=== PATIENT | female | born 1945 | race Caucasian/White ===

== ENCOUNTER 2020-03-08 09:06 | Outpatient (REF) | payer MEDICARE, SELFPAY ==
[2020-03-08 11:44] LABS: Alanine Aminotransferase 18 U/L (0-31); Albumin Level 4.4 g/dL (3.5-5.0); Alkaline Phosphatase 70 U/L (39-117); Anion Gap 14 (12-20); Aspartate Amino Transferase 22 U/L (5-31); Bilirubin Total 0.6 mg/dL (0.0-1.0); Blood Urea Nitrogen 28 mg/dL (9-16); Calcium 8.6 mg/dL (8.4-10.2); Carbon Dioxide 28 mmol/L (22-29); Chloride 104 mmol/L (96-108); Cholesterol 254 mg/dL; Estimated Glomerular Filt Rate > 60; Glucose Fasting 86 mg/dL (60-99); HDL Cholesterol 53 mg/dL; LDL Cholesterol Calculated 180 mg/dl; Sodium 142 mmol/L (135-145); Triglycerides 108 mg/dL
== END 2020-03-08 09:07 | disposition home or self-care (01) ==
LOC: HO.HMGCLDS 09:06
PROVIDERS: PCP Internal Medicine; Visit Provider Internal Medicine
DX: E78.5 Hyperlipidemia, unspecified (principal); I10 Essential (primary) hypertension; M85.80 Other specified disorders of bone density and structure, unspecified site; Z78.0 Asymptomatic menopausal state
CPT/HCPCS: 80053; 80061; 82306

== ENCOUNTER 2020-09-21 10:17 | Outpatient (REF) | payer MEDICARE, SELFPAY ==
[2020-09-21 12:16] LABS: Alanine Aminotransferase 20 U/L (0-31); Anion Gap 12 (12-20); Aspartate Amino Transferase 22 U/L (5-31); Blood Urea Nitrogen 28 mg/dL (9-16); Calcium 9.1 mg/dL (8.4-10.2); Carbon Dioxide 25 mmol/L (22-29); Chloride 108 mmol/L (96-108); Cholesterol 241 mg/dL; Estimated Glomerular Filt Rate > 60; Glucose Fasting 81 mg/dL (60-99); HDL Cholesterol 56 mg/dL; LDL Cholesterol Calculated 165 mg/dl; Potassium 3.8 mmol/L (3.3-5.1); Sodium 141 mmol/L (135-145); Triglycerides 102 mg/dL
[2020-09-21 12:20] LABS: TSH reflex Free T4 2.14 uIU/mL (0.32-4.0); Vitamin D 25-OH Total 14.7 ng/mL (>30)
== END 2020-09-21 10:18 | disposition home or self-care (01) ==
LOC: HO.HMGCLDS 10:17
PROVIDERS: PCP Internal Medicine; Visit Provider Internal Medicine
DX: E55.9 Vitamin D deficiency, unspecified (principal); E78.5 Hyperlipidemia, unspecified; I10 Essential (primary) hypertension; Z78.0 Asymptomatic menopausal state
CPT/HCPCS: 36415; 80048; 80061; 82306; 84443; 84450; 84460

== ENCOUNTER 2021-11-02 09:36 | Outpatient (REF) | payer MEDICARE, SELFPAY ==
[2021-11-02 12:05] LABS: Alanine Aminotransferase 17 U/L (0-31); Anion Gap 13 (12-20); Aspartate Amino Transferase 25 U/L (5-31); Blood Urea Nitrogen 24 mg/dL (9-16); Calcium 9.6 mg/dL (8.4-10.2); Carbon Dioxide 25 mmol/L (22-29); Chloride 107 mmol/L (96-108); Cholesterol 269 mg/dL; Estimated Glomerular Filt Rate > 60; Glucose Fasting 97 mg/dL (60-99); HDL Cholesterol 56 mg/dL; LDL Cholesterol Calculated 192 mg/dl; Sodium 141 mmol/L (135-145); Triglycerides 107 mg/dL
[2021-11-02 12:09] LABS: Vitamin D 25-OH Total 22.5 ng/mL (>30)
== END 2021-11-02 09:37 | disposition home or self-care (01) ==
LOC: HO.HMGCLDS 09:36
PROVIDERS: Visit Provider Internal Medicine
DX: E55.9 Vitamin D deficiency, unspecified (principal); E78.5 Hyperlipidemia, unspecified; I10 Essential (primary) hypertension; Z78.0 Asymptomatic menopausal state
CPT/HCPCS: 36415; 80048; 80061; 82306; 84450; 84460

== ENCOUNTER 2022-07-11 13:20 | Outpatient (AMB) | payer MEDICARE, SELFPAY ==
--- NOTE | 2022-07-11 13:22 | MHC.PC.OV ---
Vital Signs 07/11/22 13:24 Height 4 ft 11 in Weight 156 lb BMI 31.5 BP 130/64 Blood Pressure Location Lt brachial Position Sitting Pulse 70 Pulse Source Pulse Oximeter Pulse Oximetry (%) 98 Oxygen Delivery Method Room Air Intake Visit Reasons: Medication F/U Intake Note: Pt is here today for a f/u HTN Allergies latex Allergy (Unknown, Verified 07/14/23 13:02) rash atorvastatin Adverse Reaction (Unknown, Verified 07/14/23 13:02) muscle cramp lisinopril Adverse Reaction (Unknown, Verified 07/14/23 13:02) cough pravastatin Adverse Reaction (Unknown, Verified 07/14/23 13:02) muscle pain rosuvastatin [Crestor] Adverse Reaction (Unknown, Verified 07/14/23 13:02) muscle cramp Medication List - Last Reconciled 07/11/22 by Joselin Rivera MD amlodipine 5 mg PO DAILY hydrochlorothiazide 12.5 mg PO QAM losartan 50 mg PO DAILY mometasone 0.1% 1 appl topical DAILY PRN Tobacco use date assessed: 07/11/22 Fall risk assessment: No Falls in past year Last assessed Fall Risk: 07/11/22 HPI Medication F/U HPI Details 76-year old lady with hypertension, hyperlipidemia, with statin intolerance, here today for her follow-up. She has been compliant with taking her medications, just got back from [place] where she spent the winter with her family and has been exercising daily. Patient however states that she has not been eating very well, eats a lot of junk food intake out over the last several months. Is overdue for screening mammogram, colonoscopy and vaccines but does not want to get any of them. [facility] Medical History Statin intolerance History of COVID-19 History of glaucoma Mammogram declined Immunization refused Eczema Vitamin D deficiency Menopause Dyslipidemia Essential hypertension Surgical History History of laparoscopic cholecystectomy Family History Father Alcoholic Diabetes mellitus Mother HTN (hypertension) Sister Lung cancer Brother No problems noted. Social History Housing: House Alcohol intake: never Patient Tobacco Use Status: Never used Tobacco e-Cigarette/Vaping Use: Never Used service: No Current occupational status: retired Cognitive needs: No Hearing needs: No Vision needs: Yes Questionnaire PHQ-9 Over the last 2 weeks, how often have you been bothered by any of the following problems? 1. Little interest or pleasure in doing things: not at all 2. Feeling down, depressed, or hopeless: not at all 3. Trouble falling or staying asleep, or sleeping too much: not at all 4. Feeling tired or having little energy: not at all 5. Poor appetite or overeating: not at all 6. Feeling bad about yourself - or that you are a failure or have let yourself or your family down: not at all 7. Trouble concentrating on things, such as reading the newspaper or watching television: not at all 8. Moving or speaking so slowly that other people could have noticed. Or the opposite - being so fidgety or restless that you have been moving around a lot more than usual: not at all 9. Thoughts that you would be better off or of hurting yourself in some way: not at all Total score: 0 Depression Screening Interpretation: Negative 23477 - PHQ-9 Billing: Yes Source: Developed by Drs. Virgilio Leon, Mechelle Mccormack, Marcelino Bishop and colleagues, with an educational roseanne from [employer]. Thrive Questionnaire Date Thrive assessed: 11/02/21 AUDIT C Alcohol Use Questionnaire (AUDIT-C) 1. How often do you have a drink containing alcohol?: Never Total Score: 0 YOVANY-7 AMB Questionnaire YOVANY-7 Date YOVANY - 7 assessed: 07/11/22 Feeling nervous, anxious, or on edge: 0 = Not at all Not being able to stop or control worryin = Not at all Worrying too much about different things: 0 = Not at all Trouble relaxin = Not at all Being so restless that it is hard to sit still: 0 = Not at all Becoming easily annoyed or irritable: 0 = Not at all Feeling afraid as if something awful might happen: 0 = Not at all Total YOVANY-7 score (0-4 normal; 5-9 mild; 10-14 moderate; 15-21 severe): 0 Source: Developed by Drs. Virgilio Leon, Mechelle Mccormack, Marcelino Bishop and colleagues, with an educational roseanne from [employer]. YOVANY-7 Assessment Billing YOVANY-7 Assessment Tool: YOVANY-7 Assessment 23145 Review of Systems Const Denies body aches, Denies chills, Denies fatigue and Denies headache(s) Eyes Denies change in vision and Reports requires corrective lenses ENT Denies dizziness, Denies headache(s), Denies nasal congestion and Denies sore throat Card Denies chest pain and Denies dyspnea Resp Denies cough and Denies dyspnea GI Denies abdominal pain Reports no additional complaints Musc Denies myalgias Neuro Denies dizziness, Denies headache(s) and Denies focal weakness Psych Reports no additional complaints Endo Denies fatigue Marito/Lymph Reports no additional complaints Aller/Immun Reports no additional complaints Physical exam (Primary Care) Vital Signs: Last Vital Signs Pulse 70 07/11/22 13:24 BP 130/64 07/11/22 13:24 Pulse Ox 98 07/11/22 13:24 Oxygen Delivery Method Room Air 07/11/22 13:24 BMI result Body Mass Index 31.5 Tobacco/Smoking Status: Tobacco use Status Tobacco use date assessed 07/11/22 07/11/22 13:29 Patient Tobacco Use Status Never used Tobacco 07/11/22 13:23 e-Cigarette/Vaping Use Never Used 07/11/22 13:23 PHQ-9: PHQ-9 Score PHQ-9: Total score 0 07/16/23 03:52 Depression Screening Interpretation: Negative Thrive Assessment: Date of Thrive Assessment Date Thrive assessed 11/02/21 07/11/22 13:23 Const General: comfortable, no acute distress and alert Orientation/consciousness: patient oriented x3 Limitations: no limitations HENMT Ears: external ears normal, TM's normal bilaterally and EAC's normal General nose exam: Normal external nose present Mouth: Normal oral and palatal mucosa present, oropharynx normal and moist mucous membranes Eyes General: appearance normal, both eyes and all related structures Sclerae: sclerae normal Pupils: Equal, round and reactive pupils present EOM: EOMs intact bilaterally Neck Neck: Yes full ROM, Yes no lymphadenopathy and Yes supple Resp Effort & Inspection: normal respiratory effort and able to speak in complete sentences Auscultation: clear to auscultation bilaterally Cardio Rate: regular rate Rhythm: regular rhythm Heart sounds: S1 normal heart sound present and S2 normal heart sound present GI Palpation (GI): Soft to palpation, nontender and no masses Auscultation: normal bowel sounds Back/Spine/Pelvis Back: No back tenderness Skin General skin exam: no rashes or lesions noted Neuro General: patient oriented x3, gait normal, tone normal, moves all extremities, Normal light touch and pain sensation and no focal motor deficits Cranial nerves: Yes CN's II-XII intact bilaterally and Yes Equal, round and reactive pupils present Cognition (Neuro): normal cognition Extrem General: Yes full ROM, Yes no joint enlargement, Yes no clubbing, cyanosis or edema and Yes no calf tenderness Psych Appearance: grossly normal and well kempt Mental Status: mental status grossly normal Speech and movement: Normal speech and movement present Affect: normal affect Attitude: cooperative Assessment and Plan Assessment & Plan (1) Statin intolerance: Code(s): Z78.9 - Other specified health status (2) COVID-19 vaccination refused: Code(s): Z28.21 - Immunization not carried out because of patient refusal (3) Essential hypertension: Code(s): I10 - Essential (primary) hypertension Plan: Continue amlodipine, hydrochlorothiazide and losartan, reinforced importance of following a low-salt diet and get regular exercise for at least 30 minutes and a daily basis. (4) Dyslipidemia: Code(s): E78.5 - Hyperlipidemia, unspecified Plan: Patient with elevated LDL cholesterol and triglycerides, refusing to take any statin due to severe muscle pains when taking , has tried several . Stressed importance of following ao low-cholesterol diet and regular exercise, at least 30 minutes 3 to 4 times a week. Advised patient to make healthy food choices, eat more fruits, vegetables, whole grains, wild caught fish and low-fat dairy. Limit amount of meat and fried or fatty food products, as well as processed foods and fast foods. fasting lipid panel ordered (5) Vitamin D deficiency: Code(s): E55.9 - Vitamin D deficiency, unspecified Plan: Start taking [id number] vitamin-D 3 at least 2000 units once a day, will check vitamin-D level Orders: Orders Basic Metabolic Panel Fasting 07/11/22 Z78.9 - Other specified health status, Z28.21 - Immunization not carried out because of patient refusal, I10 - Essential (primary) hypertension, E78.5 - Hyperlipidemia, unspecified, E55.9 - Vitamin D deficiency, unspecified, Z78.0 - Asymptomatic menopausal state AMB Hemoglobin A1c 07/11/22 Z78.9 - Other specified health status, Z28.21 - Immunization not carried out because of patient refusal, I10 - Essential (primary) hypertension, E78.5 - Hyperlipidemia, unspecified, E55.9 - Vitamin D deficiency, unspecified, Z78.0 - Asymptomatic menopausal state Alanine Aminotransferase 07/11/22 Z78.9 - Other specified health status, Z28.21 - Immunization not carried out because of patient refusal, I10 - Essential (primary) hypertension, E78.5 - Hyperlipidemia, unspecified, E55.9 - Vitamin D deficiency, unspecified, Z78.0 - Asymptomatic menopausal state Lipid Panel 07/11/22 Z78.9 - Other specified health status, Z28.21 - Immunization not carried out because of patient refusal, I10 - Essential (primary) hypertension, E78.5 - Hyperlipidemia, unspecified, E55.9 - Vitamin D deficiency, unspecified, Z78.0 - Asymptomatic menopausal state Vitamin D 25-OH Total 07/11/22 Z78.9 - Other specified health status, Z28.21 - Immunization not carried out because of patient refusal, I10 - Essential (primary) hypertension, E78.5 - Hyperlipidemia, unspecified, E55.9 - Vitamin D deficiency, unspecified, Z78.0 - Asymptomatic menopausal state Coding Level of Care Code Est Pt Level 4 (91484) Diagnoses Statin intolerance Z78.9 COVID-19 vaccination refused Z28.21 Essential hypertension I10 Dyslipidemia E78.5 Vitamin D deficiency E55.9 Additional Codes YOVANY-7 Assessment Billing - YOVANY-7 Assessment Tool: YOVANY-7 Assessment 67244 ([id number])
[2022-07-11 13:24] VITALS: BP 130/64; PULSE 70; O2SAT 98; BMI 31.5
== END 2022-07-11 14:13 | disposition home or self-care (01) ==
LOC: HO.HMGC 13:20
PROVIDERS: PCP Internal Medicine; Visit Provider Internal Medicine
DX: Z78.9 Other specified health status (principal); Z28.21 Immunization not carried out because of patient refusal; I10 Essential (primary) hypertension; E78.5 Hyperlipidemia, unspecified; E55.9 Vitamin D deficiency, unspecified
CPT/HCPCS: 99499

== ENCOUNTER 2022-11-16 13:06 | Outpatient (AMB) | payer MEDICARE, SELFPAY ==
--- NOTE | 2022-11-16 13:11 | MHC.OFFWIV ---
Intake Vital Signs 11/16/22 13:14 Height 4 ft 11 in BP 158/90 H Blood Pressure Location Lt brachial Position Sitting Pulse 72 Pulse Source Pulse Oximeter Temp 98.3 F Temp Source Oral Pulse Oximetry (%) 98 Oxygen Delivery Method Room Air Intake Visit Reasons: EP Upper respiratory/voice Intake Note: pt is here for upper respiratory issues and voice is raspy Patient Tobacco Use Status: Never used Tobacco Allergies latex Allergy (Unknown, Verified 11/16/22 13:30) rash atorvastatin Adverse Reaction (Unknown, Verified 11/16/22 13:30) muscle cramp lisinopril Adverse Reaction (Unknown, Verified 11/16/22 13:30) cough pravastatin Adverse Reaction (Unknown, Verified 11/16/22 13:30) muscle pain rosuvastatin [Crestor] Adverse Reaction (Unknown, Verified 11/16/22 13:30) muscle cramp Medication List - Last Reconciled 11/16/22 by Jesus Scott PA-C amlodipine 5 mg PO DAILY hydrochlorothiazide 12.5 mg PO QAM losartan 50 mg PO DAILY mometasone 0.1% 1 appl topical DAILY PRN Do you need a note to return to daycare/school/sports/work: No HPI EP Upper respiratory/voice HPI Details Patient is 77-year-old female here today for upper respiratory cough and hoarseness of voice over the last 4 days. She denies any sick contacts. Has been using allergy medication though does not feel is helpful. She reports her cough is sometimes productive of green sputum. Otherwise denies any fever chills, shortness of breath, chest pain or dizziness. [facility] Medical History Dyslipidemia Eczema Essential hypertension History of COVID-19 History of glaucoma Immunization refused Mammogram declined Menopause Statin intolerance Vitamin D deficiency Surgical History History of laparoscopic cholecystectomy Family History Father Alcoholic Diabetes mellitus Mother HTN (hypertension) Sister Lung cancer Brother No problems noted. Social History Housing: House Alcohol intake: never Patient Tobacco Use Status: Never used Tobacco e-Cigarette/Vaping Use: Never Used Current occupational status: retired Cognitive needs: No Hearing needs: No Vision needs: Yes Review of Systems Const Denies headache(s) Eyes Denies loss of vision ENT Denies vertigo, Denies dizziness, Denies headache(s) and Denies sore throat Card Denies chest pain, Denies leg edema and Denies lightheadedness Resp Denies cough, Denies hemoptysis and Denies wheezing GI Denies abdominal pain, Denies melena, Denies constipation, Denies diarrhea and Denies vomiting Denies urinary frequency, Denies dysuria and Denies urinary urgency Musc Denies arthralgias, Denies joint swelling, Denies numbness and Denies tingling Neuro Denies Abnormal speech present, Denies behavioral changes, Denies vertigo, Denies dizziness, Denies headache(s), Denies loss of vision, Denies memory loss, Denies numbness and Denies tingling Psych Denies anxiety, Denies behavioral changes, Denies depression, Denies memory loss and Denies panic attacks Marito/Lymph Denies easy bleeding and Denies easy bruising Aller/Immun Denies wheezing Physical Exam Vital Signs: Last Vital Signs Temp 98.3 F 11/16/22 13:14 Pulse 72 11/16/22 13:14 BP 158/90 H 11/16/22 13:14 Pulse Ox 98 11/16/22 13:14 Oxygen Delivery Method Room Air 11/16/22 13:14 Const General: healthy appearing, no acute distress, alert and awake Nutritional Appearance: well nourished Orientation/consciousness: oriented to person, oriented to place and oriented to time HEENT Ears: TM's normal bilaterally General nose exam: Normal nasal mucous membranes and turbinates present Eyes Conjunctivae: conjunctivae normal Sclerae: sclerae normal Pupils: Equal, round and reactive pupils present Neck Neck: Yes no lymphadenopathy and Yes no JVD Thyroid: Thyroid normal Carotids: no bruits Resp Other: Occasional dry cough during exam Effort & Inspection: normal respiratory effort and not tachypneic Auscultation: no crackles, no rales, no rhonchi and no wheezes Cardio Rate: regular rate Rhythm: regular rhythm Heart sounds: no murmurs and normal S1 and S2 GI Palpation (GI): Soft to palpation, nontender, no hepatomegaly and no splenomegaly Auscultation: normal bowel sounds Skin General skin exam: no rashes or lesions noted and dry skin Neuro General: oriented to person, oriented to place and oriented to time Cranial nerves: Yes Equal, round and reactive pupils present Speech: No Abnormal speech present Gait exam (Neuro): Normal gait present Motor exam (neuro): no tremor noted Extrem Right upper extremity: full ROM Left upper extremity: full ROM Right lower extremity: full ROM; no edema Left lower extremity: full ROM; no edema Psych Mental Status: mental status grossly normal Speech and movement: Normal speech and movement present Affect: normal affect Attitude: cooperative Thought process: Normal thought process present Assessment & Plan Assessment & Plan (1) Bronchitis: Code(s): J40 - Bronchitis, not specified as acute or chronic Plan: Patient's signs symptoms most consistent with a simple bronchitis. Pulmonary exam without any wheezing, crackle or rales. Advised to continue with allergy medication. Offered albuterol inhaler for bronchospasm though patient declines. This time do not feel the need to start antibiotics. If symptoms worsen please call back. Coding Level of Care Code Est Pt Level 3 (68420) Diagnoses Bronchitis J40
[2022-11-16 13:14] VITALS: BP 158/90; PULSE 72; TEMP 36.8; O2SAT 98
== END 2022-11-16 14:13 | disposition home or self-care (01) ==
PROVIDERS: PCP Internal Medicine; Visit Provider Physician Assistant
DX: J40 Bronchitis, not specified as acute or chronic (principal)
CPT/HCPCS: 99213

== ENCOUNTER 2023-06-04 13:17 | Outpatient (AMB) | payer MEDICARE, SELFPAY ==
[2023-06-04 13:26] VITALS: BP 170/80; PULSE 77; TEMP 36.6; O2SAT 98; BMI 32.3
--- NOTE | 2023-06-04 13:26 | MHC.OFFWIV ---
Intake Vital Signs 06/04/23 13:26 Height 4 ft 11 in Weight 160 lb BMI 32.3 BP 170/80 H Blood Pressure Location Lt brachial Position Sitting Pulse 77 Pulse Source Pulse Oximeter Temp 97.9 F Temp Source Temporal Artery Scan Pulse Oximetry (%) 98 Oxygen Delivery Method Room Air Intake Visit Reasons: EP swollen rt eye BP check Intake Note: pt is here today for swollen rt eye started 1 week ago Patient Tobacco Use Status: Never used Tobacco Allergies latex Allergy (Unknown, Verified 06/04/23 13:31) rash atorvastatin Adverse Reaction (Unknown, Verified 06/04/23 13:31) muscle cramp lisinopril Adverse Reaction (Unknown, Verified 06/04/23 13:31) cough pravastatin Adverse Reaction (Unknown, Verified 06/04/23 13:31) muscle pain rosuvastatin [Crestor] Adverse Reaction (Unknown, Verified 06/04/23 13:31) muscle cramp Do you need a note to return to daycare/school/sports/work: No HPI HPI Comments History of Present Illness Details She presents to office with 2 complaints Swolen R eyelid upper Ongoing x 1 week Used hot packs without relief; only temporary +glasses No contacts No trauma or injury Pain level is irritating; 0/10 She denies drainage from area No similar L eye symptoms She said second concern is BP Pt unsure if it was her cuff of her BP readings She has been 167/67 at home, this has been ongoing for a few weeks to months Went to [place] to visit daughter and Bps ranges from 130s to 150s systolic She was taking HTCH 12.5mg daily and increased this medicine to 25mg total daily on her own to just about [address] Mauro for PCP No CP or SOB. Denies headaches or dizziness No leg swelling or calf pain; had some swelling while in [place] but it got better when she returned on Friday She has been checking her BPs every other days Her BPs are typically still 160s systolic. She takes it usually late morning. [facility] Medical History Dyslipidemia Eczema Essential hypertension History of COVID-19 History of glaucoma Immunization refused Mammogram declined Menopause Statin intolerance Vitamin D deficiency Surgical History History of laparoscopic cholecystectomy Family History Father Alcoholic Diabetes mellitus Mother HTN (hypertension) Sister Lung cancer Brother No problems noted. Social History Housing: House Alcohol intake: never Patient Tobacco Use Status: Never used Tobacco e-Cigarette/Vaping Use: Never Used Current occupational status: retired Cognitive needs: No Hearing needs: No Vision needs: Yes Review of Systems Const Denies body aches, Denies chills, Denies fatigue, Denies fever(s) and Denies headache(s) Eyes Denies blurry vision, Reports irritation, Reports itchy eyes, Denies loss of vision and Denies spots in vision ENT Denies dizziness, Denies otalgia, Denies headache(s), Denies nasal congestion and Denies sore throat Card Denies chest pain, Denies syncope and Denies dyspnea Resp Denies cough and Denies dyspnea GI Denies abdominal pain Musc Denies myalgias Neuro Denies dizziness, Denies syncope, Denies headache(s), Denies focal weakness and Denies loss of vision Endo Denies fatigue Aller/Immun Reports itchy eyes Physical Exam Vital Signs: Last Vital Signs Temp 97.9 F 06/04/23 13:26 Pulse 77 06/04/23 13:26 BP 170/80 H 06/04/23 13:26 Pulse Ox 98 06/04/23 13:26 Oxygen Delivery Method Room Air 06/04/23 13:26 BMI result Body Mass Index 32.3 General: Non-toxic, NAD. Speaking full sentences. Skin: Warm dry throughout Eye: EOMI, pERRL. No conjunctival erythema. No discharge. + erythema and edema to middle of R upper eyelid near follicles. + tenderness to palpation Respiratory: CTA bilaterally. No wheezes, rales or rhonchi Cardiac: RRR. No murmur MSK: Sitting upright on chair. Gait stable. Neurology: A/O. No aphasia or facial droop. Psych: Good mood and affect Assessment & Plan Assessment & Plan (1) Hypertension: Code(s): I10 - Essential (primary) hypertension Qualifiers: Hypertension type: unspecified Qualified Code(s): I10 - Essential (primary) hypertension Plan: Patient seen and evaluated. Repeat manual BP was 138/68 L arm by my reading. I spoke with pts PCP and she is okay with her continuing the 25mg of HTCZ Pt will go to front upon d/c and make appointment with PCP Discussed new BP monitor Discussed s/s and readings that warrant ED evaluation and management like CP, SOB, dizziness, headaches vision changes etc Patient gave verbal understanding and had no additional questions or concerns at time of discharge All questions answered (2) Blepharitis: Code(s): H01.009 - Unspecified blepharitis unspecified eye, unspecified eyelid Qualifiers: Blepharitis type: unspecified type Laterality: right Eyelid: upper Qualified Code(s): H01.001 - Unspecified blepharitis right upper eyelid Plan: Warm compress antibiotic drops Follow up with PCP Medications: New ofloxacin 0.3% 1 drp ophthalmic (eye) QID 7 days 10 mL 0RF Refilled mometasone 0.1% 1 appl topical DAILY PRN 45 grams 0RF rash Coding Level of Care Code Est Pt Level 3 (91861) Diagnoses Hypertension, unspecified type I10 Hypertension type: unspecified Blepharitis of right upper eyelid, unspecified type H01.001 Blepharitis type: unspecified type Laterality: right Eyelid: upper
== END 2023-06-04 15:24 | disposition home or self-care (01) ==
PROVIDERS: PCP Internal Medicine; Visit Provider Physician Assistant
DX: I10 Essential (primary) hypertension (principal); H01.001 Unspecified blepharitis right upper eyelid
CPT/HCPCS: 99213

== ENCOUNTER 2023-07-11 07:21 | Outpatient (REF) | payer MEDICARE, SELFPAY ==
[2023-07-11 11:46] LABS: Estimated Average Glucose 105 mg/dL; Hemoglobin A1c % 5.3 % (<6.0)
[2023-07-11 11:52] LABS: Alanine Aminotransferase 13 U/L (0-31); Anion Gap 12 (12-20); Aspartate Amino Transferase 22 U/L (5-31); Blood Urea Nitrogen 22 mg/dL (9-16); Calcium 9.3 mg/dL (8.4-10.2); Carbon Dioxide 26 mmol/L (22-29); Chloride 107 mmol/L (96-108); Cholesterol 234 mg/dL (<200); Estimated Glomerular Filt Rate > 60; Glucose Fasting 94 mg/dL (60-99); HDL Cholesterol 49 mg/dL (>40); LDL Cholesterol Calculated 163 mg/dL (<100); Potassium 3.5 mmol/L (3.3-5.1); Sodium 141 mmol/L (135-145); Triglycerides 113 mg/dL (<150)
[2023-07-11 12:10] LABS: Vitamin D 25-OH Total 21.3 ng/mL (>30)
== END 2023-07-11 07:22 | disposition home or self-care (01) ==
LOC: HO.HMGCLDS 07:21
PROVIDERS: PCP Internal Medicine; Visit Provider Internal Medicine
DX: I10 Essential (primary) hypertension (principal); E78.5 Hyperlipidemia, unspecified; Z78.0 Asymptomatic menopausal state; E55.9 Vitamin D deficiency, unspecified; Z78.9 Other specified health status
CPT/HCPCS: 36415; 80048; 80061; 82306; 83036; 84450; 84460

== ENCOUNTER 2023-07-14 11:24 | Outpatient (AMB) | payer MEDICARE, SELFPAY ==
--- NOTE | 2023-07-14 12:11 | MHC.PC.OV ---
Vital Signs 07/14/23 12:22 Height 4 ft 11 in Weight 161 lb 2 oz BMI 32.5 BP 130/62 Blood Pressure Location Lt brachial Position Sitting Pulse 72 Pulse Source Pulse Oximeter Pulse Oximetry (%) 98 Oxygen Delivery Method Room Air Intake Visit Reasons: 1 year follow up Intake Note: Pt is here today for 1 Year follow Up. Allergies latex Allergy (Unknown, Verified 07/14/23 13:02) rash atorvastatin Adverse Reaction (Unknown, Verified 07/14/23 13:02) muscle cramp lisinopril Adverse Reaction (Unknown, Verified 07/14/23 13:02) cough pravastatin Adverse Reaction (Unknown, Verified 07/14/23 13:02) muscle pain rosuvastatin [Crestor] Adverse Reaction (Unknown, Verified 07/14/23 13:02) muscle cramp Medication List - Last Reconciled 07/14/23 by Joselin Rivera MD amlodipine 5 mg PO DAILY cholecalciferol (vitamin D3) 1,250 mcg PO QWEEK 3 months hydrochlorothiazide 25 mg PO QAM losartan 50 mg PO DAILY mometasone 0.1% 1 appl topical DAILY PRN Tobacco use date assessed: 07/14/23 Fall risk assessment: No Falls in past year Last assessed Fall Risk: 07/14/23 Dental Screening Dental Screen Date: 07/14/23 Did you have a dental visit in the last 12 months?: No Did you have a dental problem in the last 6 months where you did not have access to dental care?: No Was dental information given to patient?: Patient has dentist HPI 1 year follow up HPI Details 77-year-old lady, with hypertension, mixed dyslipidemia, history of vitamin-D deficiency, here today for her follow-up. She just came back from [place], where she states it was raining all day and no sun. Recent fasting labs done showed normal fasting glucose, electrolytes are within normal limits, vitamin-D however still remains low at 21, lipids showed improvement as compared to last check with the and LDL cholesterol now at 163 with normal triglycerides she is intolerant of statins, but has changed her diet and has been exercising regularly while she was in [place]. She does not want to get any vaccinations, does not want to get mammogram, bone density scan or colonoscopy. She did increase her hydrochlorothiazide dose to 25 mg daily in addition to her lisinopril and amlodipine while she was taking [place] as her blood pressure there has been running around 170/90. Patient states that her blood pressure has now been running at goal of less than 130/90. Denies any chest pain, no headache, no lightheadedness, gets an occasional skipped beat, but no shortness of breath reported [facility] Medical History Statin intolerance History of COVID-19 History of glaucoma Mammogram declined Immunization refused Eczema Vitamin D deficiency Menopause Dyslipidemia Essential hypertension Surgical History History of laparoscopic cholecystectomy Family History Father Alcoholic Diabetes mellitus Mother HTN (hypertension) Sister Lung cancer Brother No problems noted. Social History Housing: House Alcohol intake: never Patient Tobacco Use Status: Never used Tobacco e-Cigarette/Vaping Use: Never Used service: No Current occupational status: retired Cognitive needs: No Hearing needs: No Vision needs: Yes Questionnaire PHQ-9 Over the last 2 weeks, how often have you been bothered by any of the following problems? 1. Little interest or pleasure in doing things: not at all 2. Feeling down, depressed, or hopeless: not at all 3. Trouble falling or staying asleep, or sleeping too much: not at all 4. Feeling tired or having little energy: not at all 5. Poor appetite or overeating: not at all 6. Feeling bad about yourself - or that you are a failure or have let yourself or your family down: not at all 7. Trouble concentrating on things, such as reading the newspaper or watching television: not at all 8. Moving or speaking so slowly that other people could have noticed. Or the opposite - being so fidgety or restless that you have been moving around a lot more than usual: not at all 9. Thoughts that you would be better off or of hurting yourself in some way: not at all Total score: 0 Depression Screening Interpretation: Negative Depression Screening Done: Yes 37828 - PHQ-9 Billing: Yes Source: Developed by Drs. Virgilio Leon, Mechelle Mccormack, Marcelino Bishop and colleagues, with an educational roseanne from [employer]. Thrive Questionnaire Date Thrive assessed: 07/14/23 I am a: Patient What is your living situation today?: I have a steady place to live Within the past 12 months, did the food you bought not last and you didn't have the money to get more?: Never true Within the past 12 months, did you worry whether your food would run out before you got money to buy more?: Never true Do you have trouble paying for medicines?: No Do you have trouble getting transportation to medical appointments?: No Do you have trouble paying your heating and electricity bill?: No Do you have trouble taking care of your child, family member or friend?: No Do you have trouble with day-to-day activities such as bathing, preparing meals, shopping, managing finances, etc.?: No Are you currently unemployed and looking for a job?: No Are you interested in more education?: No Please select the resources that you would like help with: None Currently or been in a relationship where the following occur: no concerns reported THRIVE Score: 0 YOVANY-7 AMB Questionnaire YOVANY-7 Date YOVANY - 7 assessed: 07/14/23 Feeling nervous, anxious, or on edge: 0 = Not at all Not being able to stop or control worryin = Not at all Worrying too much about different things: 0 = Not at all Trouble relaxin = Not at all Being so restless that it is hard to sit still: 0 = Not at all Becoming easily annoyed or irritable: 0 = Not at all Feeling afraid as if something awful might happen: 0 = Not at all Total YOVANY-7 score (0-4 normal; 5-9 mild; 10-14 moderate; 15-21 severe): 0 Source: Developed by Drs. Virgilio Leon, Mechelle Mccormack, Marcelino Bishop and colleagues, with an educational roseanne from [employer]. YOVANY-7 Assessment Billing YOVANY-7 Assessment Tool: YOVANY-7 Assessment 10419 Review of Systems Const Denies body aches, Denies chills, Denies fatigue, Denies fever(s) and Denies headache(s) Eyes Denies change in vision and Reports requires corrective lenses ENT Denies dizziness, Denies otalgia, Denies headache(s), Denies nasal congestion and Denies sore throat Card Denies chest pain, Denies syncope and Denies dyspnea Resp Denies cough and Denies dyspnea GI Denies abdominal pain Reports no additional complaints Musc Denies myalgias Neuro Denies dizziness, Denies syncope, Denies headache(s) and Denies focal weakness Psych Reports no additional complaints Endo Denies fatigue Marito/Lymph Reports no additional complaints Aller/Immun Reports no additional complaints Physical exam (Primary Care) Vital Signs: Last Vital Signs Pulse 72 07/14/23 12:22 BP 130/62 07/14/23 12:22 Pulse Ox 98 07/14/23 12:22 Oxygen Delivery Method Room Air 07/14/23 12:22 BMI result Body Mass Index 32.5 Tobacco/Smoking Status: Tobacco use Status Tobacco use date assessed 07/14/23 07/14/23 12:26 Patient Tobacco Use Status Never used Tobacco 07/14/23 12:13 e-Cigarette/Vaping Use Never Used 07/14/23 12:13 PHQ-9: PHQ-9 Score PHQ-9: Total score 0 07/14/23 12:13 Depression Screening Interpretation: Negative Thrive Assessment: Date of Thrive Assessment Date Thrive assessed 07/14/23 07/14/23 12:13 Currently or been in a relationship where the following occur: no concerns reported Const General: comfortable, no acute distress and alert Orientation/consciousness: patient oriented x3 Limitations: no limitations HENMT Ears: external ears normal, TM's normal bilaterally and EAC's normal General nose exam: Normal external nose present and No nasal discharge present Mouth: Normal oral and palatal mucosa present, oropharynx normal and moist mucous membranes Eyes General: appearance normal, both eyes and all related structures Sclerae: sclerae normal Pupils: Equal, round and reactive pupils present EOM: EOMs intact bilaterally Neck Neck: Yes full ROM, Yes no lymphadenopathy and Yes supple Resp Effort & Inspection: normal respiratory effort and able to speak in complete sentences Auscultation: clear to auscultation bilaterally Cardio Rate: regular rate Rhythm: regular rhythm Heart sounds: S1 normal heart sound present and S2 normal heart sound present GI Palpation (GI): Soft to palpation, nontender and no masses Auscultation: normal bowel sounds Back/Spine/Pelvis Back: No back tenderness Skin General skin exam: no rashes or lesions noted Neuro General: patient oriented x3, gait normal, tone normal, moves all extremities, Normal light touch and pain sensation and no focal motor deficits Cranial nerves: Yes CN's II-XII intact bilaterally and Yes Equal, round and reactive pupils present Cognition (Neuro): normal cognition Extrem General: Yes full ROM, Yes no joint enlargement, Yes no clubbing, cyanosis or edema and Yes no calf tenderness Psych Appearance: grossly normal and well kempt Mental Status: mental status grossly normal Speech and movement: Normal speech and movement present Affect: normal affect Attitude: cooperative Results Reviewed Results Reviewed: Name: Daphne Juan Age/Sex: 77/F : 1945 Unit#: [id number] Attend Dr: Joselin Rivera MD Re07/11/23 Status: DEP REF Location: [facility] Disch: SPEC : [id number] KIKI: 07/11/23 STATUS: COMP REQ : [id number] RECD: 07/11/[address]: Joselin Rivera MD COMP: 07/11/23 ENTERED: 07/11/[address]: ORDERED: Met Prof Fast, AST, ALT, Lipid Panel, Vitamin D 25-OH Test Result Flag Reference Sodium 141 135-145 mmol/L Potassium 3.5 3.3-5.1 mmol/L CL 107 96-108 mmol/L CO2 26 22-29 mmol/L Gap 12 12-20 BUN 22 H 9-16 mg/dL Creat 0.86 0.5-1.4 mg/dL EGFR > 60 NOTE: For -Gabonese individuals, multiply the result by 1.210. Chronic Kidney Disease: Estimated GFR < 60 mL/min/1.73m2 Severe Kidney Disease: Estimated GFR < 15 mL/min/1.73m2 FBS 94 60-99 mg/dL CA 9.3 8.4-10.2 mg/dL AST (GOT) 22 5-31 U/L ALT (GPT) 13 0-31 U/L Triglyceride 113 <150 mg/dL Desirable Triglyceride: less than 150 mg/dL Borderline High Triglyceride 150-199 mg/dL High Triglyceride: 200-499 mg/dL Very High Triglyceride: greater than or equal to 5OO mg/dL Cholesterol 234 H <200 mg/dL Desirable Cholesterol: less than 200 mg/dL Borderline High Cholesterol: 200-239 mg/dL High Cholesterol: greater than 239 mg/dL LDL Calculated 163 H <100 mg/dL Desirable LDL: less than 100 mg/dL Near Optimal/Above Optimal LDL: 110-129 mg/dL Borderline High LDL: 130-159 mg/dL High LDL: 160-189 mg/dL Very High LDL: greater than or equal to 190 mg/dL HDL 49 >40 mg/dL Desirable HDL: greater than 40 mg/dL Note: This HDL assay may give artificially low results in patients with liver disease. Vit D 25-OH Tot 21.3 L >30 ng/mL Health Based Reference Values* < 20 ng/mL Deficient 20-30 ng/mL Insufficient > 30 ng/mL Sufficient Assessment and Plan Assessment & Plan (1) Essential hypertension: Code(s): I10 - Essential (primary) hypertension Plan: Blood pressure at goal of less than 130/80. Continue with amlodipine, lisinopril at the same dose, hydrochlorothiazide dose refilled at 25 mg per tablet to take once a day in a.m... Reinforced importance of following a low sodium diet, getting regular exercise, and lowering stress levels. (2) Vitamin D deficiency: Code(s): E55.9 - Vitamin D deficiency, unspecified Plan: She was placed back on cholecalciferol 54490 units per capsule, to take once a week for the next 3 months. Advised to take [id number] vitamin D3 at 2000 units once a day after finishing prescription continue with regular exercise (3) Statin intolerance: Code(s): Z78.9 - Other specified health status Plan: She has hyperlipidemia with improvement in her lipids, does not want to start any statins as it has given her severe muscle pains in the past (4) Dyslipidemia: Code(s): E78.5 - Hyperlipidemia, unspecified Plan: Fasting lipid panel done recently showed improvement in her LDL cholesterol, now down to 163 mg/dL, goal is to go less than 130 at least. Continue with regular exercise and adherence to healthy eating habits. Will repeat another lipid panel in 1 year, patient does not want to get it done sooner Orders: Orders Aspartate Amino Transferase 07/11/23 E55.9 - Vitamin D deficiency, unspecified, E78.5 - Hyperlipidemia, unspecified, I10 - Essential (primary) hypertension, Z78.0 - Asymptomatic menopausal state, Z78.9 - Other specified health status Basic Metabolic Panel Fasting 07/11/23 E55.9 - Vitamin D deficiency, unspecified, E78.5 - Hyperlipidemia, unspecified, I10 - Essential (primary) hypertension, Z78.0 - Asymptomatic menopausal state, Z78.9 - Other specified health status Vitamin D 25-OH Total 07/11/23 E55.9 - Vitamin D deficiency, unspecified, E78.5 - Hyperlipidemia, unspecified, I10 - Essential (primary) hypertension, Z78.0 - Asymptomatic menopausal state, Z78.9 - Other specified health status Lipid Panel 07/03/24 E55.9 - Vitamin D deficiency, unspecified, E78.5 - Hyperlipidemia, unspecified, I10 - Essential (primary) hypertension, Z78.0 - Asymptomatic menopausal state, Z78.9 - Other specified health status Alanine Aminotransferase 07/03/24 E55.9 - Vitamin D deficiency, unspecified, E78.5 - Hyperlipidemia, unspecified, I10 - Essential (primary) hypertension, Z78.0 - Asymptomatic menopausal state, Z78.9 - Other specified health status Basic Metabolic Panel Fasting 07/03/24 E55.9 - Vitamin D deficiency, unspecified, E78.5 - Hyperlipidemia, unspecified, I10 - Essential (primary) hypertension, Z78.0 - Asymptomatic menopausal state, Z78.9 - Other specified health status Hemoglobin A1c 07/11/23 E55.9 - Vitamin D deficiency, unspecified, E78.5 - Hyperlipidemia, unspecified, I10 - Essential (primary) hypertension, Z78.0 - Asymptomatic menopausal state, Z78.9 - Other specified health status Alanine Aminotransferase 07/11/23 E55.9 - Vitamin D deficiency, unspecified, E78.5 - Hyperlipidemia, unspecified, I10 - Essential (primary) hypertension, Z78.0 - Asymptomatic menopausal state, Z78.9 - Other specified health status Lipid Panel 07/11/23 E55.9 - Vitamin D deficiency, unspecified, E78.5 - Hyperlipidemia, unspecified, I10 - Essential (primary) hypertension, Z78.0 - Asymptomatic menopausal state, Z78.9 - Other specified health status Aspartate Amino Transferase 07/03/24 E55.9 - Vitamin D deficiency, unspecified, E78.5 - Hyperlipidemia, unspecified, I10 - Essential (primary) hypertension, Z78.0 - Asymptomatic menopausal state, Z78.9 - Other specified health status Vitamin D 25-OH Total 07/03/24 E55.9 - Vitamin D deficiency, unspecified, E78.5 - Hyperlipidemia, unspecified, I10 - Essential (primary) hypertension, Z78.0 - Asymptomatic menopausal state, Z78.9 - Other specified health status Medications: New hydrochlorothiazide 25 mg PO QAM 90 tabs 4RF cholecalciferol (vitamin D3) 1,250 mcg PO QWEEK 3 months 13 caps 0RF E55.9 - Vitamin D deficiency, unspecified Discontinued hydrochlorothiazide Discontinued Reason: Doctor's Order 12.5 mg PO QAM 90 caps 1RF Coding Level of Care Code Est Pt Level 4 (34811) Diagnoses Essential hypertension I10 Vitamin D deficiency E55.9 Statin intolerance Z78.9 Dyslipidemia E78.5 Additional Codes YOVANY-7 Assessment Billing - YOVANY-7 Assessment Tool: YOVANY-7 Assessment 50306 ([id number])
[2023-07-14 12:22] VITALS: BP 130/62; PULSE 72; O2SAT 98; BMI 32.5
== END 2023-07-14 16:58 | disposition home or self-care (01) ==
PROVIDERS: Visit Provider Internal Medicine
DX: I10 Essential (primary) hypertension (principal); E55.9 Vitamin D deficiency, unspecified; Z78.9 Other specified health status; E78.5 Hyperlipidemia, unspecified
CPT/HCPCS: 99214

== ENCOUNTER 2024-08-09 08:19 | Outpatient (REF) | payer MEDICARE, SELFPAY ==
[2024-08-09 11:14] LABS: Alanine Aminotransferase 18 U/L (0-31); Anion Gap 12 (12-20); Aspartate Amino Transferase 32 U/L (5-31); Blood Urea Nitrogen 20 mg/dL (9-16); Calcium 9.5 mg/dL (8.4-10.2); Carbon Dioxide 25 mmol/L (22-29); Chloride 107 mmol/L (96-108); Cholesterol 247 mg/dL (<200); Estimated Glomerular Filt Rate > 60; Glucose Fasting 90 mg/dL (60-99); HDL Cholesterol 58 mg/dL (>40); LDL Cholesterol Calculated 171 mg/dL (<100); Potassium 3.3 mmol/L (3.3-5.1); Sodium 141 mmol/L (135-145); Triglycerides 93 mg/dL (<150)
== END 2024-08-09 08:20 | disposition home or self-care (01) ==
LOC: HO.HMGCLDS 08:19
PROVIDERS: PCP Internal Medicine; Visit Provider Internal Medicine
DX: Z78.9 Other specified health status (principal); E55.9 Vitamin D deficiency, unspecified; Z78.0 Asymptomatic menopausal state; E78.5 Hyperlipidemia, unspecified; I10 Essential (primary) hypertension
CPT/HCPCS: 36415; 80048; 80061; 82306; 84450; 84460

== ENCOUNTER 2024-08-11 10:52 | Outpatient (AMB) | payer MEDICARE, SELFPAY ==
--- NOTE | 2024-08-11 11:11 | A.OFFVIS_ITS ---
Intake Vital Signs 08/11/24 11:15 Height 4 ft 11 in Weight 155 lb BMI 31.3 BP 114/80 Blood Pressure Location Lt brachial Position Sitting Respiration 15 Pulse 62 Pulse Source Pulse Oximeter Temp 98.1 F Temp Source Oral Pulse Oximetry (%) 98 Oxygen Delivery Method Room Air Intake Visit Reasons: BIANCA G0439 Allergies latex Allergy (Unknown, Verified 08/11/24 11:28) rash atorvastatin Adverse Reaction (Unknown, Verified 08/11/24 11:28) muscle cramp lisinopril Adverse Reaction (Unknown, Verified 08/11/24 11:28) cough pravastatin Adverse Reaction (Unknown, Verified 08/11/24 11:28) muscle pain rosuvastatin [Crestor] Adverse Reaction (Unknown, Verified 08/11/24 11:28) muscle cramp Medication List - Last Reconciled 08/11/24 by Joselin Rivera MD amlodipine 5 mg PO DAILY cholecalciferol (vitamin D3) 1,250 mcg PO QWEEK 3 months hydrochlorothiazide 25 mg PO QAM losartan 50 mg PO DAILY mometasone 0.1% 1 appl topical DAILY PRN HPI SWV G0439 HPI Details SWV 78 year old lady presents for her subse quent? Annual Wellness Visit, .? She has history of dyslipidemia, intolerant to statins, trying to adhere to low- cholesterol diet and exercising regularly, swims daily. Her last fasting lipid panel was on 08/04/2024 which showed improvement in her LDL cholesterol but still not at goal. Fasting blood sugar however was within normals done at the same day. She is overdue for her screening mammogram and colonoscopy, but patient declines to get both procedures done. Patient also does not want to do any Cologuard testing. Last bone density testing done 12/04/2011 showed presence of osteopenia but does not want to get any further testing as well. Denies history of falls or fractures. She sees Dr. Storm for her routine eye exam. Has history of glaucoma status post surgery She initially received [employer]ne [employer] Dewayne vaccine , but does not want to receive any further vaccines. She has a healthcare proxy in place, and MOLST form completed today ? Medical / Social History Reviewed? Past Medical History ?Yes . ? [place] of Care / Care Team list updated ?Yes . ? Surgical/Hospitalization History ?Yes . ? Current Medications (including OTC and supplements) ?Yes . ? Family History ?Yes . ? Tobacco Control form ?Yes . ? AUDIT-C (Alcohol use) form ?Yes . ? Illicit drug use in Social History ?Yes . ? Current diagnosis of depression? ?No ? Appropriate PHQ2/PHQ9 completed ?Yes . ? Data entered by ?Platform Software Engineer and reviewed by provider ? Fall Risk ? Fall History? Have you had any falls with injury in the past year? ?No . ? Have you had two or more falls in the past year? ?No . ? Fall Risk Assessment: ?No falls in the past year . ? HRA filled out by the patient, reviewed by Provider and scanned. ? SWV ? Balance? Romberg ?Yes . ? Tandem walk ?Yes . ? Walk and Turn ?Yes . ? Rise from sit to stand ?Yes . ?Vision? Corrective lens ?Yes ? Vision screen ? Up-to-date, has an appointment Dr. Storm, ?Hearing? Whisper test ?pass . ?Written Plan?Completed. See Patient Documents.? HPI Comments History of Present Illness Details i [facility] Medical History Statin intolerance History of COVID-19 History of glaucoma Mammogram declined Immunization refused Eczema Vitamin D deficiency Menopause Dyslipidemia Essential hypertension Surgical History History of laparoscopic cholecystectomy Family History Father Alcoholic Diabetes mellitus Mother HTN (hypertension) Sister Lung cancer Brother No problems noted. Social History Housing: House Alcohol intake: never Patient Tobacco Use Status: Never used Tobacco e-Cigarette/Vaping Use: Never Used service: No Current occupational status: retired Cognitive needs: No Hearing needs: No Vision needs: Yes Questionnaire Medicare Wellness Checkup What [age] What gender do you identify with?: female During the past 4 weeks, how much have you been bothered by emotional problems such as feeling anxious, depressed, irritable, sad or downhearted, and blue?: not at all During the past 4 weeks, has your physical & emotional health limited your social activities with family, friends, neighbors, or groups?: not at all During the past 4 weeks, how much bodily pain have you generally had?: very mild pain During the past 4 weeks, was someone available to help you if you needed & wanted help?: yes, as much as I wanted During the past 4 weeks, what was the hardest physical activity you could do for at least 2 minutes?: moderate Can you get to places out of walking distance without help? (For eg., can you travel alone on buses, taxis or drive your car?): Yes Can you go shopping for groceries or clothes without someone's help?: Yes Can you prepare your own meals?: Yes Can you do your housework without help?: Yes Because of any health problems, do you need the help of another person with your personal care needs such as eating, bathing, dressing or getting around the house?: No Can you handle your own money without help?: Yes During the past 4 weeks, how would you rate your health in general?: very good During the past 4 weeks how have things been going for you?: very well; could hardly better Are you having difficulties driving your car?: no Do you always fasten your seat belt when you are in a car?: yes, usually During past 4 weeks, have you been bothered by the following: never: Falling or dizzy when standing up, Sexual problems?, Trouble eating well?, Teeth or denture problems? and Problems using the telephone? and seldom: Tiredness or fatigue? Have you fallen 2 or more times in the past year?: No Are you afraid of falling?: No Are you a smoker?: no During the past 4 weeks, how many drinks of wine, beer, or other alcoholic beverages did you have?: no alcohol at all Do you exercise for about 20 minutes 3 or more times a week?: yes, most of the time Have you been given information to help with the following?: no: Hazards in your house that might hurt you? and no: Keeping track of your medications? How often do you have trouble taking medicines the way you have been told to take them?: I always take medicine as prescribed How confident are you that you can control & manage most of your health problems?: very confident What is your race?: White Mini Mental State Exam (MMSE) Orientation What is the (year) (season) (date) (day) (month)?: year (2024), season (Spring), date (08/11/2024), day (friday) and month (August) Where are we (state) (county) (town or city) (hospital) (floor)?: state ([place]), [facility] ([place]), town or city ([place]) and hospital/clinic ([facility]) Score Score: 9 Activity of Daily Living Bathing - sponge bath, tub bath or shower: receives no assistance (gets in/out by self, if usual bathing means Dressing - getting clothes from closets & drawers, including inner/outer garments & fasteners.: gets clothes & gets completely dressed without help Toileting - going to the 'toilet room' for urine/bowel elimination & cleaning self/arranging clothes: goes to toilet room, cleans self, arranges clothes without help Transfer: moves in & out of bed and chair without help (may use support object) Continence: has occasional 'accidents' Feeding: feeds self without help Total Score: 0 Information obtained from: patient Using telephone: independent Traveling: independent Shopping: independent Preparing meals: independent Housework: independent Taking medicine: independent Managing money: independent PHQ-9 Over the last 2 weeks, how often have you been bothered by any of the following problems? 1. Little interest or pleasure in doing things: not at all 2. Feeling down, depressed, or hopeless: not at all 3. Trouble falling or staying asleep, or sleeping too much: not at all 4. Feeling tired or having little energy: not at all 5. Poor appetite or overeating: not at all 6. Feeling bad about yourself - or that you are a failure or have let yourself or your family down: not at all 7. Trouble concentrating on things, such as reading the newspaper or watching television: not at all 8. Moving or speaking so slowly that other people could have noticed. Or the opposite - being so fidgety or restless that you have been moving around a lot more than usual: not at all 9. Thoughts that you would be better off or of hurting yourself in some way: not at all Total score: 0 Depression Screening Interpretation: Negative Depression Screening Done: Yes 19240 - PHQ-9 Billing: Yes Source: Developed by Drs. Virgilio Leon, Mechelle Mccormack, Marcelino Bishop and colleagues, with an educational roseanne from [employer]. Physical Exam Vital Signs: Last Vital Signs Temp 98.1 F 08/11/24 11:15 Pulse 62 08/11/24 11:15 Resp 15 08/11/24 11:15 BP 114/80 08/11/24 11:15 Pulse Ox 98 08/11/24 11:15 Oxygen Delivery Method Room Air 08/11/24 11:15 BMI result Body Mass Index 31.3 Results Reviewed Results Reviewed: Name: Daphne Juan Age/Sex: 78/F : 1945 Unit#: [id number] Attend Dr: Joselin Rivera MD Re08/09/24 Status: DEP [facility]: SPEC : [id number] KIKI: 08/09/24 STATUS: COMP REQ : [id number] RECD: 08/09/24-[address]: Joselin Rivera MD COMP: 08/09/24 ENTERED: 08/09/[address]: ORDERED: Met Prof Fast, AST, ALT, Lipid Panel, Vitamin D 25-OH Test Result Flag Reference Sodium 141 135-145 mmol/L Potassium 3.3 3.3-5.1 mmol/L CL 107 96-108 mmol/L CO2 25 22-29 mmol/L Gap 12 12-20 BUN 20 H 9-16 mg/dL Creat 0.79 0.5-1.4 mg/dL eGFR > 60 Chronic Kidney Disease: Estimated GFR < 60 mL/min/1.7 3m2 Severe Kidney Disease: Estimated GFR < 15 mL/min/1.73m2 FBS 90 60-99 mg/dL CA 9.5 8.4-10.2 mg/dL AST (GOT) 32 H 5-31 U/L ALT (GPT) 18 0-31 U/L Triglyceride 93 <150 mg/dL Desirable Triglyceride: less than 150 mg/dL Borderline High Triglyceride 150-199 mg/dL High Triglyceride: 200-499 mg/dL Very High Triglyceride: greater than or equal to 5OO mg/dL Cholesterol 247 H <200 mg/dL Desirable Cholesterol: less than 200 mg/dL Borderline High Cholesterol: 200-239 mg/dL High Cholesterol: greater than 239 mg/dL LDL Calculated 171 H <100 mg/dL Desirable LDL: less than 100 mg/dL Near Optimal/Above Optimal LDL: 110-129 mg/dL Borderline High LDL: 130-159 mg/dL High LDL: 160-189 mg/dL Very High LDL: greater than or equal to 190 mg/dL HDL 58 >40 mg/dL Desirable HDL: greater than 40 mg/dL Note: This HDL assay may give artificially low results in patients with liver disease. Vitamin D 25-OH 34.0 >30 ng/mL Health Based Reference Values* < 20 ng/mL Deficient 20-30 ng/mL Insufficient > 30 ng/mL Sufficient Assessment & Plan Assessment & Plan (1) Encounter for subsequent annual wellness visit (AWV) in Medicare patient: Code(s): Z00.00 - Encounter for general adult medical examination without abnormal findings Plan: Medical wellness checklist reviewed, discussed with patient and updated. The patient does not want to get any screenings for colon cancer, breast cancer or cervical cance . Declines getting any vaccines. MOLST and healthcare proxy form completed today. (2) Dyslipidemia: Code(s): E78.5 - Hyperlipidemia, unspecified Plan: Latest fasting labs showed elevated total cholesterol and LDL cholesterol, but is lower than last check. Patient still continues to refuse taking any statin or other medicines to lower cholesterol due to the severe side effects she has experienced with several statins (3) Essential hypertension: Code(s): I10 - Essential (primary) hypertension Plan: Blood pressure at goal of less than 130/80. Continue amlodipine 5 mg daily and hydrochlorothiazide 25 mg in a.m. as well as losartan 50 mg daily. Reinforced importance of following a low sodium diet, getting regular exercise, and lowering stress levels. (4) Advanced directives, counseling/discussion: Code(s): Z71.89 - Other specified counseling Plan: Initiated the conversation about Advanced Directives. Advanced Directives help patients prepare for current and future decisions about their medical treatment and place of care. Discussed with patient that it is a process where a patients current condition and prognosis are reviewed, their wishes for information regarding their illness are elicited, and likely medical dilemmas are presented and options discussed. Healthcare proxy form and MOLST form completed today. These forms can be amended as needed, reviewed yearly and make changes as needed Quality Reporting (2019) Depression/Bipolar (159/160/161/177) PHQ-9: Total score: 0 Coding Level of Care Code Medicare Subsequent (G0439) Diagnoses Encounter for subsequent annual wellness visit (AWV) in Medicare patient Z00.00 Dyslipidemia E78.5 Essential hypertension I10 Advanced directives, counseling/discussion Z71.89 CPT Codes Advance Care Planning - Time spent: 16-45 minutes ([id number]) Additional Codes PHQ-9 - 27764 - PHQ-9 Billing: Yes ([id number]) Advance Care Planning Advance Care Planning discussion: Completed/Scanned Date of discussion: 08/11/24 Who was present: Patient Forms completed: Health Care Proxy and MOLST Time spent: 16-45 minutes Actual minutes spent: 3
[2024-08-11 11:15] VITALS: BP 114/80; PULSE 62; RESP 15; TEMP 36.7; O2SAT 98; BMI 31.3
== END 2024-08-11 11:50 | disposition home or self-care (01) ==
LOC: HO.HMCC 10:53
PROVIDERS: PCP Internal Medicine; Visit Provider Internal Medicine
DX: Z00.00 Encounter for general adult medical examination without abnormal findings (principal); E78.5 Hyperlipidemia, unspecified; I10 Essential (primary) hypertension; Z71.89 Other specified counseling

== ENCOUNTER → 2024-08-11 10:52 | Outpatient (BNVA) | payer MEDICARE, SELFPAY | PROVIDERS: PCP Internal Medicine; Visit Provider Internal Medicine | DX: Z00.00 Encounter for general adult medical examination without abnormal findings (principal); E78.5 Hyperlipidemia, unspecified; I10 Essential (primary) hypertension; Z71.89 Other specified counseling | CPT/HCPCS: 96127 ==

== ENCOUNTER 2025-01-20 10:09 | Outpatient (AMB) | payer MEDICARE, SELFPAY ==
[2025-01-20 10:11] VITALS: BP 140/86; PULSE 98; TEMP 36.6; O2SAT 100; BMI 31.3
--- NOTE | 2025-01-20 10:11 | AM.OFFWIN_ITS ---
Intake Vital Signs 3 01/20/25 10:11 Height 4 ft 11 in Weight 155 lb BMI 31.3 BP 140/86 H Blood Pressure Location Lt brachial Position Sitting Pulse 98 Pulse Source Pulse Oximeter Temp 97.9 F Temp Source Oral Pulse Oximetry (%) 100 Oxygen Delivery Method Room Air Intake Visit Reasons: ep blisters on toes Intake Note: pt presents with blister to RT great toe, LT 3rd and 5th toes for 1-1.5 weeks and RT knee starting yesterday. Denies pain/itch. Patient Tobacco Use Status: Never used Tobacco Allergies latex Allergy (Unknown, Verified 01/20/25 10:13) rash atorvastatin Adverse Reaction (Unknown, Verified 01/20/25 10:13) muscle cramp lisinopril Adverse Reaction (Unknown, Verified 01/20/25 10:13) cough pravastatin Adverse Reaction (Unknown, Verified 01/20/25 10:13) muscle pain rosuvastatin (Crestor) Adverse Reaction (Unknown, Verified 01/20/25 10:13) muscle cramp Medication List - Last Reconciled 01/20/25 by Fifi Davis NP amlodipine 5 mg PO DAILY hydrochlorothiazide 25 mg PO QAM losartan 50 mg PO DAILY Do you need a note to return to daycare/school/sports/work: No HPI HPI Comments 2 History of Present Illness0 Details 79 y/o Female patient who presents to [facility] walk in clinic with c/o Blisters on B/L Toes for 1.5 weeks. Reports first noticed one blister on the Right Great toe, which spread to other toes. Few days later she noticed new Blisters on Left 3rd, 4th and 5th toes. Blisters filled with clear fluid, intact and Non Tender. She had been wearing New Pair of shoes and believes it is related due to Friction. Denies Itching or pain around the blisters. Denies any systemic symptoms. [facility] Medical History (Updated 01/20/25 @ 10:43 by Fifi Davis NP) Acute blistering eruption of skin Statin intolerance History of COVID-19 History of glaucoma Mammogram declined Immunization refused Eczema Vitamin D deficiency Menopause Dyslipidemia Essential hypertension Surgical History History of laparoscopic cholecystectomy Family History Father Alcoholic Diabetes mellitus Mother HTN (hypertension) Sister Lung cancer Brother No problems noted. Social History Housing: House Alcohol intake: never Patient Tobacco Use Status: Never used Tobacco e-Cigarette/Vaping Use: Never Used service: No Current occupational status: retired Cognitive needs: No Hearing needs: No Vision needs: Yes Review of Systems Const All systems reviewed & are unremarkable except as noted in HPI and below Physical Exam Vital Signs: Last Vital Signs Temp 97.9 F 01/20/25 10:11 Pulse 98 01/20/25 10:11 BP 140/86 H 01/20/25 10:11 Pulse Ox 100 01/20/25 10:11 Oxygen Delivery Method Room Air 01/20/25 10:11 BMI result Body Mass Index 31.3 Const General: no acute distress Nutritional Appearance: well nourished Orientation/consciousness: patient oriented x3 Neuro General: patient oriented x3, gait normal and moves all extremities Extrem Right lower extremity: foot Details: normal capillary refill and toes with normal ROM Left lower extremity: foot Details: normal capillary refill and toes with normal ROM Ankle/foot/toe images: 2 1. Blisters filled with clear fluid, B/L Toes (Great toe, 3rd, 4th and 5th Toes both feet). Blisters intact and no Signs of infection. Assessment & Plan Assessment & Plan (1) Acute blistering eruption of skin: Code(s): R21 - Rash and other nonspecific skin eruption Plan: DDx's: Friction/Allergic blisters vs Eczema vs Dermatitis. No clear etiology at this time. Ordered Topical Steroid Cream. Wear comfortable, breathable shoes and socks. Keep the blisters clean and dry. Medications: New 2 triamcinolone acetonide 0.5% 1 appl topical TID 15 grams 0RF R21 - Rash and other nonspecific skin eruption Discontinued 2 mometasone 0.1% Discontinued Reason: Patient Completed Course 1 appl topical DAILY PRN 45 grams 0RF rash Coding Level of Care Code Est Pt Level 4 (45154) Diagnoses Acute blistering eruption of skin R21 Time Spent (min) 20
== END 2025-01-20 10:39 | disposition home or self-care (01) ==
PROVIDERS: PCP Internal Medicine; Visit Provider Nurse Practitioner Family
DX: R21 Rash and other nonspecific skin eruption (principal)

== ENCOUNTER → 2025-01-20 10:09 | Outpatient (BNVA) | payer MEDICARE, SELFPAY | PROVIDERS: PCP Internal Medicine; Visit Provider Nurse Practitioner Family | DX: S90.421A Blister (nonthermal), right great toe, initial encounter (principal); S90.424A Blister (nonthermal), right lesser toe(s), initial encounter; S90.422A Blister (nonthermal), left great toe, initial encounter; S90.425A Blister (nonthermal), left lesser toe(s), initial encounter; R21 Rash and other nonspecific skin eruption; X58.XXXA Exposure to other specified factors, initial encounter; Y93.9 Activity, unspecified; Y92.9 Unspecified place or not applicable; Y99.9 Unspecified external cause status | CPT/HCPCS: 99212 ==

== ENCOUNTER 2025-01-28 10:31 | Outpatient (AMB) | payer MEDICARE, SELFPAY ==
[2025-01-28 10:35] VITALS: BP 134/76; PULSE 73; TEMP 36.6; O2SAT 98; BMI 31.7
--- NOTE | 2025-01-28 10:35 | AM.OFFWIN_ITS ---
Intake Vital Signs 01/28/25 10:35 Height 4 ft 11 in Weight 157 lb BMI 31.7 BP 134/76 Blood Pressure Location Lt brachial Position Sitting Pulse 73 Pulse Source Pulse Oximeter Temp 98 F Temp Source Oral Pulse Oximetry (%) 98 Oxygen Delivery Method Room Air Intake Visit Reasons: EP Blisters on right foot Intake Note: pt present with enlarging blister right great toe and right medial knee Patient Tobacco Use Status: Never used Tobacco Allergies latex Allergy (Unknown, Verified 01/28/25 10:39) rash atorvastatin Adverse Reaction (Unknown, Verified 01/28/25 10:39) muscle cramp lisinopril Adverse Reaction (Unknown, Verified 01/28/25 10:39) cough pravastatin Adverse Reaction (Unknown, Verified 01/28/25 10:39) muscle pain rosuvastatin (Crestor) Adverse Reaction (Unknown, Verified 01/28/25 10:39) muscle cramp Do you need a note to return to daycare/school/sports/work: No HPI EP Blisters on right foot HPI0 Details 79 year old female patient presents to [facility] clinic today to f/u on blisters on RLE. She was seen here on 01/20 with this complaint. Etiology was not clear however she had been wearing a new pair of shoes and she felt it was possibly from friction. Denies itching or pain around blisters. Denies any systemic symptoms. She was prescribed triamcinolone cream which she has been using daily. She returns however reporting that the blisters are still present and the one on her right great toe is quite large. She would like to drain it as it is becoming challenging to put shoes on. Small blister on right medial knee still present, however patient is less concerned with this. [facility] Medical History Acute blistering eruption of skin Statin intolerance History of COVID-19 History of glaucoma Mammogram declined Immunization refused Eczema Vitamin D deficiency Menopause Dyslipidemia Essential hypertension Surgical History History of laparoscopic cholecystectomy Family History Father Alcoholic Diabetes mellitus Mother HTN (hypertension) Sister Lung cancer Brother No problems noted. Social History Housing: House Alcohol intake: never Patient Tobacco Use Status: Never used Tobacco e-Cigarette/Vaping Use: Never Used service: No Current occupational status: retired Cognitive needs: No Hearing needs: No Vision needs: Yes Review of Systems Const All systems reviewed & are unremarkable except as noted in HPI and below Physical Exam Vital Signs: Last Vital Signs Temp 98 F 01/28/25 10:35 Pulse 73 01/28/25 10:35 BP 134/76 01/28/25 10:35 Pulse Ox 98 01/28/25 10:35 Oxygen Delivery Method Room Air 01/28/25 10:35 BMI result Body Mass Index 31.7 Const General: cooperative, healthy appearing, comfortable and no acute distress Resp Effort & Inspection: normal respiratory effort Skin Other: large blister top of right great toe. Clear fluid. No surrounding erythema or warmth. Small, approx 1cm diameter blister, also clear fluid, medial right knee. No edema. Normal ROM LE. Normal cap refill. +PP Psych Appearance: grossly normal Mental Status: mental status grossly normal Speech and movement: Normal speech and movement present Office Procedures I&D Drain 80199-Maztcrst of Skin Abscess, simple All charges added?: Procedure code (CPT) selection complete Assessment & Plan Assessment & Plan (1) Acute blistering eruption of skin: Code(s): R21 - Rash and other nonspecific skin eruption Plan: Large blister on dorsum of right great toe drained per patient request as it is interfering with wearing shoes. This was done easily utilizing 25g needle with iodine prep. Patient tolerated well with no c/o pain. Clear fluid drained. Bacitracin applied. Advised patient to continue to apply previously prescribed c ream to blister on medial knee as needed. Reviewed signs/symptoms of infection and advised patient to return to the clinic as needed if blisters recur or do not subside with time and treatment. All questions were answered, and patient verbalizes understanding and agrees to plan. Coding Level of Care Code Est Pt Level 4 (32996) Diagnoses Acute blistering eruption of skin R21 CPT Codes I&D Drain - Drain 1: 50106-Bwdcoklt of Skin Abscess, simple ([id number])
== END 2025-01-28 11:13 | disposition home or self-care (01) ==
PROVIDERS: PCP Internal Medicine; Visit Provider Nurse Practitioner Family
DX: R21 Rash and other nonspecific skin eruption (principal)

== ENCOUNTER → 2025-01-28 10:31 | Outpatient (BNVA) | payer MEDICARE, SELFPAY | PROVIDERS: PCP Internal Medicine | DX: S90.821A Blister (nonthermal), right foot, initial encounter (principal); R21 Rash and other nonspecific skin eruption; X58.XXXA Exposure to other specified factors, initial encounter; Y93.9 Activity, unspecified; Y92.9 Unspecified place or not applicable; Y99.9 Unspecified external cause status | CPT/HCPCS: 10060; 99212 ==

== ENCOUNTER 2025-01-31 10:58 | Outpatient (AMB) | payer MEDICARE, SELFPAY ==
[2025-01-31 11:19] VITALS: BP 134/72; PULSE 93; TEMP 36.8; O2SAT 98; BMI 31.7
--- NOTE | 2025-01-31 11:19 | MHC.OFFWIV ---
Intake Vital Signs 01/31/25 11:19 Height 4 ft 11 in Weight 157 lb BMI 31.7 BP 134/72 Blood Pressure Location Lt brachial Position Sitting Pulse 93 Pulse Source Pulse Oximeter Temp 98.3 F Temp Source Oral Pulse Oximetry (%) 98 Oxygen Delivery Method Room Air Intake Visit Reasons: ep blister on right big toe Intake Note: pt presents with irritation to erupted blister on RT big toe Patient Tobacco Use Status: Never used Tobacco Allergies latex Allergy (Unknown, Verified 01/31/25 11:25) rash atorvastatin Adverse Reaction (Unknown, Verified 01/31/25 11:25) muscle cramp lisinopril Adverse Reaction (Unknown, Verified 01/31/25 11:25) cough pravastatin Adverse Reaction (Unknown, Verified 01/31/25 11:25) muscle pain rosuvastatin (Crestor) Adverse Reaction (Unknown, Verified 01/31/25 11:25) muscle cramp Do you need a note to return to daycare/school/sports/work: No HPI HPI Comments History of Present Illness Details History of Present Illness - The patient is an 79-year-old female presenting with blisters on the toes. - She was seen here twice for the same thing. - The blisters appeared after consuming almonds in her candy, she thinks. - The patient has a history of eczema, which has been exacerbated by the consumption of almonds. - The patient has been soaking the affected area with salt water and applying ointment, but the blisters persist. - The patient has a history of knee replacement surgery and was advised to take antibiotics for infections. - She wants the blister drained today. - She denies fever, chills, pus, or bleeding. Physical Exam General: Cooperative, healthy appearing, comfortable, no acute distress and well developed Orientation: Patient oriented x3 Respiratory: Normal respiratory effort and able to speak in complete sentences. Clear to auscultation bilaterally Cardiovascular: Regular rate and rhythm. Normal S1 and S2. Pulses are 2+ on the UE. Skin: No rashes or lesions noted. Blisters on the right great toe, draining clear serous fluid. Mild erythema noted around the blister. Neuro: Sensation intact. Extremities: Normal to inspection. Patient was informed and verbally consented to the use of an ambient scribe for clinic note documentation during this visit. [facility] Medical History Acute blistering eruption of skin Statin intolerance History of COVID-19 History of glaucoma Mammogram declined Immunization refused Eczema Vitamin D deficiency Menopause Dyslipidemia Essential hypertension Surgical History History of laparoscopic cholecystectomy Family History Father Alcoholic Diabetes mellitus Mother HTN (hypertension) Sister Lung cancer Brother No problems noted. Social History Housing: House Alcohol intake: never Patient Tobacco Use Status: Never used Tobacco e-Cigarette/Vaping Use: Never Used service: No Current occupational status: retired Cognitive needs: No Hearing needs: No Vision needs: Yes Review of Systems Const All systems reviewed & are unremarkable except as noted in HPI and below Physical Exam Vital Signs: Last Vital Signs Temp 98.3 F 01/31/25 11:19 Pulse 93 01/31/25 11:19 BP 134/72 01/31/25 11:19 Pulse Ox 98 01/31/25 11:19 Oxygen Delivery Method Room Air 01/31/25 11:19 BMI result Body Mass Index 31.7 Office Procedures I&D Drain Details: blister on the right great toe opened with manually manipulation. Wound cleaned and antibiotic ointment was applied with a bandaid. Procedure was well tolerated. [id number] Drainage of Lesion All charges added?: Procedure code (CPT) selection complete Assessment & Plan Assessment & Plan (1) Blister of toe of right foot: Code(s): S90.424A - Blister (nonthermal), right lesser toe(s), initial encounter Qualifiers: Encounter type: subsequent encounter Qualified Code(s): S90.424D - Blister (nonthermal), right lesser toe(s), subsequent encounter Plan Most likely blister which is recurring with some redness plan - Initiate oral antibiotics to address potential infection. - Apply antibiotic ointment to the affected area. - Continue soaking the foot in salt water to promote drainage. - Advise patient to avoid almonds and monitor for any recurrence of symptoms. - follow up with PCP Orders: Orders AMB Incision & Drainage Today S90.424A - Blister (nonthermal), right lesser toe(s), initial encounter Medications: New cephalexin 500 mg PO Q6H 28 caps 0RF mupirocin 2% 1 appl topical TID 22 grams 0RF Coding Level of Care Code Est Pt Level 3 (33124) Diagnoses Blister of toe of right foot, subsequent encounter S90.424D Encounter type: subsequent encounter CPT Codes I&D Drain - DRAIN 10: [id number] Drainage of Lesion ([id number])
== END 2025-01-31 12:59 | disposition home or self-care (01) ==
PROVIDERS: PCP Internal Medicine; Visit Provider Physician Assistant Medical
DX: S90.424A Blister (nonthermal), right lesser toe(s), initial encounter (principal)

== ENCOUNTER → 2025-01-31 10:58 | Outpatient (BNVA) | payer MEDICARE, SELFPAY | PROVIDERS: PCP Internal Medicine; Visit Provider Physician Assistant Medical | DX: S90.424D Blister (nonthermal), right lesser toe(s), subsequent encounter (principal) | CPT/HCPCS: 99212 ==